=== PATIENT | male | born 1995 | race American Indian/Alaskan Native ===

== ENCOUNTER 2018-05-20 | Emergency (ER) | payer OTHER ==
[2018-05-20 00:18] VITALS: BP 122/51
--- NOTE | 2018-05-20 02:06 | XRay Report ---
PROCEDURE: RIGHT ANKLE, 3 VIEWS TECHNIQUE: RIGHT ankle radiographs, AP, lateral, and oblique views. CPT 40527 HISTORY: Pain COMPARISONS: None . FINDINGS: Fracture (s) and/or Dislocation(s): None . There are screws transfixing the distal tibia. Alignment: Normal . Joint space(s): Normal . Soft tissues: Normal . Bone mineralization: Normal . Foreign bodies: None . Calcaneal spurring: None . IMPRESSION: There are no fractures or malalignments. . This document is electronically signed by Shoaib Joy MD., May 20 2018 02:04:28 AM ET
--- NOTE | 2018-05-20 02:23 | Emergency Department Report ---
ED Lower Extremity HPI - General Chief Complaint: Extremity Injury, Lower Stated Complaint: RIGHT ANKLE PAIN Source: patient Mode of arrival: Ambulatory Limitations: No Limitations - History of Present Illness Initial Comments: 23-year-old morbidly obese -[place] male with past medical history of right ankle fracture with internal fixation. This emergency department co mplaining of mis-stepping off of a step causing an inversion ankle injury and pain to the medial aspect of the ankle since it occurred around 4:00 today. Pain is worse with palpation and range of motion and standing. He is able to ambulate with some discomfort. No numbness or tingling. He reports nausea, no head trauma, no loss of consciousness. Injury: Ankle: Right Type of Injury: inversion Place: home Severity: mild Improves With: nothing Worsens With: weight bearing, movement, palpation Context: fall Associated Symptoms: able to partially bear weight - Related Data Previous Rx's Medication Instructions Recorded Last Taken Type Ketorolac [Toradol] 10 mg PO Q6H PRN #15 tablet 05/20/18 Unknown Rx Allergies Allergy/AdvReac Type Severity Reaction Status Date / Time iodine Allergy Itching Verified 05/20/18 00:06 ED Review of Systems ROS: Stated complaint: RIGHT ANKLE PAIN Other details as noted in HPI Constitutional: denies: chills, fever Eyes: denies: eye pain, eye discharge, vision change ENT: denies: ear pain, throat pain Respiratory: denies: cough, shortness of breath, wheezing Cardiovascular: denies: chest pain, palpitations Endocrine: no symptoms reported Gastrointestinal: denies: abdominal pain, nausea, diarrhea Genitourinary: denies: urgency, dysuria Musculoskeletal: arthralgia. denies: back pain, myalgia, other Skin: denies: rash, lesions Neurological: denies: headache, weakness, paresthesias Psychiatric: denies: anxiety, depression Hematological/Lymphatic: denies: easy bleeding, easy bruising ED Past Medical Hx - Social History Smoking Status: Current Every Day Smoker Substance Use Type: None - Medications Home Medications: Home Medications Medication Instructions Recorded Confirmed Last Taken Type Ketorolac [Toradol] 10 mg PO Q6H PRN #15 tablet 05/20/18 Unknown Rx ED Physical Exam - General Limitations: No Limitations General appearance: alert, in no apparent distress - Head Head exam: Present: atraumatic, normocephalic - Eye Eye exam: Present: normal appearance, PERRL, EOMI Pupils: Present: normal accommodation - ENT ENT exam: Present: normal exam, mucous membranes moist - Neck Neck exam: Present: normal inspection - Respiratory Respiratory exam: Present: normal lung sounds bilaterally. Absent: respiratory distress - Cardiovascular Cardiovascular Exam: Present: regular rate, normal rhythm. Absent: systolic murmur, diastolic murmur, rubs, gallop - GI/Abdominal GI/Abdominal exam: Present: soft, normal bowel sounds - Rectal Rectal exam: Present: deferred - Extremities Exam Extremities exam: Present: normal inspection, tenderness, joint swelling, other (tenderness with palpation to the to the medial malleolus region. No bruising or swelling is noted. No tenderness to the proximal tibia or fibula. Pulses are 2+and capillary refills are brisk.). Absent: pedal edema, calf tenderness - Back Exam Back exam: Present: normal inspection - Neurological Exam Neurological exam: Present: alert, oriented X3 - Psychiatric Psychiatric exam: Present: normal affect, normal mood - Skin Skin exam: Present: warm, dry, intact, normal color. Absent: rash ED Course Vital Signs 05/20/18 00:16 Temperature 98.2 F Pulse Rate 70 Respiratory 16 Rate Blood Pressure 122/51 O2 Sat by Pulse 99 Oximetry ED Lower Extremity MDM - Medical Decision Making Pain medication was offered butlers" was refused due to him not feeling that it was necessary for his current injuries. Critical care attestation.: If time is entered above; I have spent that time in minutes in the direct care of this critically ill patient, excluding procedure time. ED Disposition Clinical Impression: Ankle sprain Disposition: DC- TO HOME OR SELFCARE Is pt being admited?: No Does the pt Need Aspirin: No Condition: Stable Instructions: Ankle Sprain (ED), Ankle Stirrup Splint (ED), Ankle Exercises (GEN) Prescriptions: Ketorolac [Toradol] 10 mg PO Q6H PRN #15 tablet PRN Reason: Pain Referrals: LUANA RUST MD [Staff Physician] - 3-5 Days
== END 2018-05-20 02:36 | disposition home or self-care (01) ==
LOC: ED
DX: S93.401A Sprain of unspecified ligament of right ankle, initial encounter (principal); Z91.041 Radiographic dye allergy status; F17.200 Nicotine dependence, unspecified, uncomplicated; W10.9XXA Fall (on) (from) unspecified stairs and steps, initial encounter; Y93.89 Activity, other specified; Y92.89 Other specified places as the place of occurrence of the external cause; Y99.8 Other external cause status